=== PATIENT | female | born 1960 | race African-American/Black ===

== ENCOUNTER 2017-09-02 10:24 | Inpatient (IN) | payer BC, SELFPAY ==
[2017-09-02 10:51] LABS: #Basophils 0.1 thou/uL (0.0-0.2); #Eosinphils 0.6 thou/uL (0.0-0.7); #Lymphocytes 4.1 thou/uL (1.20-3.40); #Monocytes 1.1 thou/uL (0.11-0.59); #Neutrophils 10.1 thou/uL (1.40-6.50); %Basophils 0.7 % (0.0-1.0); %Lymphocytes 25.6 % (21.0-51.0); %Monocytes 6.8 % (0.0-10.0); %Neutrophils 62.9 % (42.0-75.0); Hemoglobin 14.3 g/dL (12.0-16.0); Mean Corpuscular HGB CONC 33.8 g/dL (32.0-36.0); Mean Corpuscular Volume 82.7 fl (81.0-99.0); Mean Platelet Volume 10.7 fL (7.4-10.4); Platelet Count 201 thou/uL (130-400); RBC Distribution Width 15.4 % (11.5-14.5)
[2017-09-02 11:13] LABS: ALT (SGPT) 13 U/L (8-55); AST (SGOT) 17 U/L (5-34); Albumin 4.4 g/dL (3.5-5.0); Alkaline Phosphatase 108 U/L (40-150); Anion Gap 13 mmol/L (10-20); BUN (Urea Nitrogen) 23 mg/dL (9.8-20.1); Bilirubin, Total 0.6 mg/dL (0.2-1.2); Calc. Creatinine Clearance 0 mL/min (70-130); Calcium 10.1 mg/dL (7.8-10.44); Carbon Dioxide 25 mmol/L (22-29); Chloride 107 mmol/L (98-107); Estimated GFR-MDRD 89; Globulin 3.6 g/dL (2.4-3.5); Glucose 100 mg/dL (70-105); Potassium 3.8 mmol/L (3.5-5.1); Sodium 141 mmol/L (136-145)
--- NOTE | 2017-09-02 11:26 | RAD ---
CHEST 1 VIEW: Date: 09/02/17 COMPARISON: 02/20/14. HISTORY: Cough. Left facial heaviness and drooping of the tongue. FINDINGS: Normal cardiac silhouette. Pulmonary vessels and hilum are normal. Costophrenic angles are clear. No consolidation or mass. No pneumothorax or osseous abnormalities. Atherosclerosis of the aorta is note d. IMPRESSION: 1. No acute cardiopulmonary process. 2. Atherosclerosis of the aorta. POS: [facility]
--- NOTE | 2017-09-02 12:01 | CT ---
NONCONTRAST CT HEAD: 09/02/2017 HISTORY: Left-sided numbness. The patient also reports left arm and leg pain since Jez. Tongue numbness. COMPARISON: None available. FINDINGS: There is no evidence of a hemorrhage, acute infarction, mass effect, or midline shift. The ventricul ar system is normal in size, shape, and position. The visualized paranasal sinuses and mastoid air c ells are clear. The calvarial structures demonstrate a lytic lesion within the right anterolateral p arietal bone, near the level of the superior aspect of the coronal suture. This is overall nonspecif ic. This may represent a large hemangioma. This lytic lesion measures 2.5 cm x 1.4 cm. The calvari al structures otherwise have a normal appearance. IMPRESSION: 1. Lytic lesion within the anterior and superior aspects of the right parietal bone, which may repre sent a large hemangioma, but further evaluation with a bone scan is recommended. 2. No acute intracranial abnormality is demonstrated. The above findings were discussed with Dr. Vela in the emergency department on 09/02/2017 at 1143 hours. CODE CR POS: [facility]
[2017-09-02 12:31] LABS: CKMB 2.3 ng/mL (0-6.6); Troponin I Less than 0.010 ng/mL (< 0.028)
[2017-09-02 13:34] VITALS: BMI 33.5
[2017-09-02] MEDS ORDERED: Ondansetron ODT 4 MG TAB PO PRN (14:20)
[2017-09-02] MEDS ORDERED: Zolpidem Tartrate 5 MG TAB PO PRN (14:20)
[2017-09-02] MEDS ORDERED: Amlodipine 5 MG TAB PO SCH (14:30)
[2017-09-02 14:38] LABS: Troponin I Less than 0.010 ng/mL (< 0.028)
--- NOTE | 2017-09-02 14:53 | HP ---
PRIMARY CARE PHYSICIAN: [facility]aresthesias. HISTORY OF PRESENT ILLNESS: Patient states the whole left side of her body is hurting her that her m outh is twisted a bit. She has numbness in her tongue and blurry vision in her right eye, this had b een present about 2 days. She denies any ataxia, or falls. She has some mild headache and some mild dizziness, but no vertigo. PAST MEDICAL HISTORY: Pertinent for hypertension, elevated cholesterol. CURRENT MEDICATIONS: Lisinopril 20/12.5 once a day, lovastatin 10 mg a day and aspirin 81 mg a day. ALLERGIES: She is allergic to no medicines. PAST SURGICAL HISTORY: She had a total hip replacement in 2015 on the right. FAMILY HISTORY: Mother has hypertension. Nobody has had strokes in the family. She has a sister wi th heart disease. No one with diabetes in the family. SOCIAL HISTORY: She is single, smokes 6 cigarettes a day currently, drinks 2 beers a month. CODE STATUS: FULL CODE status. REVIEW OF SYSTEMS: General: No fever, sweats or chills. Eyes: Blurry in the right eye. No double vision. ENT: No ear pain or drainage. No nasal bleeding. No trouble swallowing. Cardiac: No chest pain, orthopnea or paroxysmal nocturnal dyspnea. Respirations: She has some shor tness of breath at times with activity. She relates to smoking. No cough, wheezing or asthma. Gorge rointestinal: No nausea, vomiting, diarrhea or constipation. Genitourinary: No hematuria, dysuria or nocturia. Musculoskeletal: Occasional swelling in her legs. No particular muscle pains, joint p ains at this time. Neurologic: No history of strokes, seizures or focal weakness. Psychiatric: No anxiety, depression. Skin: No bruising, bleeding or rash. Heme/Lymph: No tender or swollen lymph nodes in axilla, inguinal or cervical area. PHYSICAL EXAMINATION: GENERAL: Patient is alert, oriented, cooperative lady. VITAL SIGNS: Blood pressure is elevated to 187/94, pulse 55, respirations 18, temperature 97.4. HEENT: Reveal pupils equal, reactive. Extraocular movements are intact. Sclerae white. Tympanic m embranes clear. Nose is clear. Oral mucous membranes are wet. Dental hygiene is good. Examination of her lips revealed puffy, swollen lips. NECK: No jugular venous distention, adenopathy or thyromegaly. CHEST: Clear to auscultation and percussion. HEART: Regular rate and rhythm. First and second heart sounds are clear. There are no appreciated murmurs or gallops. ABDOMEN: Soft, bowel sounds are normal. There is no hepatosplenomegaly, no masses, no rebound, no b ruits. EXTREMITIES: No cyanosis, clubbing or edema. PULSES: Carotid, radial, femoral, and dorsalis pedis pulses intact. SKIN: Warm and dry without bruises or rash. HEME/LYMPH: Reveals no tender or swollen lymph nodes in axilla, inguinal or cervical area. NEUROLOGICAL: Revealed protruding tongue deviated to the left, mild right seventh nerve palsy. Stre ngth was symmetric. There was no discoordination. Deep tendon reflexes were symmetric. X-RAY FINDINGS: CT scan of the brain reveals no acute intracranial abnormality; however, she does mitchell ve a lytic lesion in the right parietal bone, which may represent a hemangioma. A bone scan was glen mmended. Chest x-ray: No cardiomegaly, CHF or infiltrate, reviewed by me. LABORATORY DATA: Comp metabolic profile normal except for a BUN of 23. CBC normal except for a whit e count of 16.0. ASSESSMENT: 1. Possible cerebrovascular accident with abnormally deviated tongue and evidence of right central 7 th palsy. 2. Angioedema of the mouth. 3. Hypertension. 4. Dyslipidemia. 5. Left-sided body pain. PLAN: 1. MRI of the brain, no contrast. 2. Bone scan. 3. Stop lisinopril. 4. Start amlodipine. 5. Continue aspirin and lovastatin. Reevaluate when data available.
--- NOTE | 2017-09-02 16:41 | MRI ---
NONCONTRAST BRAIN MRI 09/02/17 HISTORY: Evaluate for stroke. Altered mental status. Two to three days of headache. COMPARISON: None. TECHNIQUE: Brain MRI is performed without intravenous gadolinium administration. Multisequential, multiplanar im aging is performed. FINDINGS: No hemorrhage on the axial gradient echo sequence. No parenchymal mass, mass effect or midline shift. Brain volume is age appropriate. Cortical tripp-whi te matter differentiation is preserved. Ventricles and sulci are patent and symmetric. No significant T2 or FLAIR white matter hyperintensities. Midline brain parenchymal structures are un remarkable. There is T1 hypointensity with associated T2/STIR hyperintensity involving the right fron rianna calvarium corresponding to recent CT findings. Possibility of atypical hemangioma is raised. Eval uation is incomplete. Central arterial flow voids are maintained. Absent restricted diffusion. Minima l mucosal thickening of the visualized sinuses. IMPRESSION: 1. Absence restricted diffusion. 2. No acute infarct. 3. There is intrinsic T1 hypointensity with associated STIR hyperintensity involving the right f rontal calvarium. There does appear to be some trabeculation, favoring an atypical hemangioma. Evalua tion is incomplete on this examination. Consider bone scan. POS: [facility]
--- NOTE | 2017-09-02 17:31 | PDOC.EVN ---
Event Note - Event Note Event Note: MRI brain- no cva , etc. sispect facial changes due to angioedame from MAXIMILIANO. lisinopril DCed, amlodipine started
[2017-09-02 17:43] LABS: Troponin I Less than 0.010 ng/mL (< 0.028)
[2017-09-02] MEDS: Nicotine 14 MG PATCH TOP SCH (18:14)
[2017-09-02] MEDS: cloNIDine 0.1 MG TAB PO PRN (20:18)
[2017-09-02] MEDS: Acetaminophen 325 MG TAB PO PRN (20:18)
[2017-09-02] MEDS: Cepastat Lozenges 1 LOZ PO PRN (20:19)
[2017-09-03 04:57] LABS: #Basophils 0.1 thou/uL (0.0-0.2); #Eosinphils 0.6 thou/uL (0.0-0.7); #Lymphocytes 3.1 thou/uL (1.20-3.40); #Monocytes 0.7 thou/uL (0.11-0.59); #Neutrophils 6.2 thou/uL (1.40-6.50); %Basophils 0.7 % (0.0-1.0); %Eosinophils 5.4 % (0.0-10.0); %Monocytes 6.2 % (0.0-10.0); %Neutrophils 58.8 % (42.0-75.0); Mean Corpuscular HGB CONC 32.3 g/dL (32.0-36.0); Mean Corpuscular Hemoglobin 27.2 pg (27.0-31.0); Mean Corpuscular Volume 84.2 fl (81.0-99.0); Mean Platelet Volume 11.3 fL (7.4-10.4); Platelet Count 195 thou/uL (130-400); RBC Distribution Width 15.4 % (11.5-14.5); Red Blood Cell (RBC) Count 4.77 mill/uL (4.20-5.40); White Blood Cell (WBC) Count 10.6 thou/uL (4.8-10.8)
[2017-09-03 05:24] LABS: Anion Gap 11 mmol/L (10-20); BUN (Urea Nitrogen) 21 mg/dL (9.8-20.1); Calc. Creatinine Clearance 97 mL/min (70-130); Calcium 9.2 mg/dL (7.8-10.44); Carbon Dioxide 25 mmol/L (22-29); Cardiac Risk 4.5 (Less than 4.5); Chloride 108 mmol/L (98-107); Cholesterol 195 mg/dl (< 200 Desired); Estimated GFR-MDRD Greater than 90; Glucose 103 mg/dL (70-105); HDL Cholesterol 43 mg/dL (>60 Neg Risk); LDL Cholesterol, Calculated 125 mg/dL; Potassium 3.7 mmol/L (3.5-5.1); Sodium 140 mmol/L (136-145); Triglycerides 137 mg/dL (Less than 150)
[2017-09-03] MEDS: Aspirin 325 mg Enteric Coated Tablet PO SCH (07:34)
[2017-09-03] MEDS: Amlodipine 5 MG TAB PO SCH (07:35)
[2017-09-03] MEDS: Enoxaparin Sodium 40 MG/0.4 ML SYRINGE SC SCH (07:35)
[2017-09-03] MEDS: Acetaminophen 325 MG TAB PO PRN ×3 (10:28→22:54)
[2017-09-03] MEDS: Cepastat Lozenges 1 LOZ PO PRN (10:28)
--- NOTE | 2017-09-03 12:17 | PDOC.PN ---
- Subjective Encounter Start Date: 09/03/17 Encounter Start Time: 12:15 Subjective: pain under R ear - Objective Resuscitation Status: Resuscitation Status FULL:Full Resuscitation MAR Reviewed: Yes Vital Signs & Weight: Vital Signs (12 hours) Temp Pulse Resp BP BP BP Pulse Ox 09/03/17 08:00 98.4 F 50 L 16 09/03/17 07:35 50 L 177/81 H 09/03/17 07:20 98.4 F 48 L 18 177/81 H 96 09/03/17 03:03 97.8 F 50 L 20 167/72 H 94 L Weight Weight 172 lb I&O: 09/02/17 09/03/17 09/04/17 06:59 06:59 06:59 Intake Total 900 240 Output Total 1300 Balance -400 240 Result Diagrams: 09/03/17 04:44 09/03/17 04:44 Phys Exam - Physical Examination exquisily tender, swollen R parotid Neck: no JVD Respiratory: clear to auscultation bilateral Cardiovascular: RRR, no significant murmur Gastrointestinal: soft, non-tender, positive bowel sounds Musculoskeletal: no edema Dx/Plan (1) Angio-edema Code(s): T78.3XXA - ANGIONEUROTIC EDEMA, INITIAL ENCOUNTER Status: Acute Qualifiers: Encounter type: sequela Qualified Code(s): T78.3XXS - Angioneurotic edema, sequela (2) HTN (hypertension) Code(s): I10 - ESSENTIAL (PRIMARY) HYPERTENSION Status: Acute (3) Dyslipidemia Code(s): E78.5 - HYPERLIPIDEMIA, UNSPECIFIED Status: Acute (4) Suppurative parotitis Code(s): K11.20 - SIALOADENITIS, UNSPECIFIED Status: Acute - Plan blood C&S, start rocephin for parotitis -: bone scan pending -: cont off MAXIMILIANO * .
--- NOTE | 2017-09-03 13:22 | NM ---
WHOLE BODY BONE SCAN: HISTORY: Lytic lesion in the right calvarium. COMPARISON: MRI brain and CT brain from 09/02/2017. TECHNIQUE: A whole body bone scan was performed after the administration of 30 millicuries of technetium 99m MDP . FINDINGS: There is an area of photopenia in the right calvarium, which correlates with the region where the abn ormality is seen on CT and MRI. No significant increased uptake of the radiopharmaceutical is seen a round this photopenic region. There is abnormal uptake in both knees and ankles/feet secondary to degenerative change. Soft tissue activity is unremarkable. Uptake in the mandible is likely secondary to periodontal disease. IMPRESSION: There is photopenia at the area of abnormality in the right calvarium. This photopenic region is non specific. POS: [facility]
[2017-09-03] MEDS: cefTRIAXone\\ROCEPHIN 2 GM in Sodium Chloride 0.9% 100 ML IVPB SCH (14:48)
[2017-09-03] MEDS: Nicotine 14 MG PATCH TOP SCH (17:38)
[2017-09-03] MEDS ORDERED: Simvastatin 5 MG TAB PO SCH (21:00)
[2017-09-03] MEDS: cloNIDine 0.1 MG TAB PO PRN (22:53)
[2017-09-04] MEDS: Aspirin 325 mg Enteric Coated Tablet PO SCH (08:26)
[2017-09-04] MEDS: Enoxaparin Sodium 40 MG/0.4 ML SYRINGE SC SCH (08:26)
[2017-09-04] MEDS: Amlodipine 5 MG TAB PO SCH (09:46)
[2017-09-04 12:07] VITALS: BP 148/63; TEMP 97.8
--- NOTE | 2017-09-04 12:29 | DIS ---
DATE OF ADMISSION: 09/02/2017 DATE OF DISCHARGE: 09/04/2017 PRIMARY CARE PROVIDER: [facility]. DISCHARGE DISPOSITION: Home. FINAL DIAGNOSES: Acute sialadenitis, angioedema secondary to MAXIMILIANO, hypertension, dyslipidemia. DISCHARGE MEDICATIONS: Omnicef 600 mg a day, amlodipine 5 mg a day, aspirin 325 mg a day, lovastatin 10 mg a day. MEDICATIONS DISCONTINUED: MAXIMILIANO inhibitor. ALLERGIES: None. CODE STATUS: FULL. PENDING AT THE TIME OF DISCHARGE: Blood cultures are negative to date. They will be followed. HOSPITAL COURSE: Patient was admitted through the emergency room to the [facility] a diagnosis of paresthesias. She had pain on her left side of the body, numbness of the tongue an d swelling in the face. On physical exam, it was obvious she had angioedema of the tongue and lips. Her MAXIMILIANO inhibitor was stopped. This is resolved. She never had respiratory distress. She did have a very tender, swollen right parotid gland for which she was started on ceftriaxone and it is marked ly diminished today. Her pertinent laboratory on admission, she had a white count of 16.0, which ashleigh pped down to 10.6, hemoglobin 14.3 to 13.0. Her chemistries, comp metabolic profile was normal excep t for BUN of 23. She had a brain MRI, which was unrevealing for acute process, as was the brain CT. She did have an area of her calvarium, which was followed with a bone scan. There was no evidence o f a malignant process, most likely a hemangioma. She is being discharged on the above medications, t o take the Norvasc in place of the MAXIMILIANO inhibitor for blood pressure and to take the cefdinir/Omnicef for 10 days. No consultations were obtained. No procedures were done. She has been asked to follow up with her primary care provider in 7 days. Today, she is feeling well. Her pulse is listed as 46 in the [employer]. I have taken her pulse several times over the past 30 minutes myself and she is al ways between 60 and 70. Blood pressure this morning was 122/65, heart and lungs are clear. She is a lert and appropriate and ready to go home.
[2017-09-04] MEDS: cefTRIAXone\\ROCEPHIN 2 GM in Sodium Chloride 0.9% 100 ML IVPB SCH (14:10)
== END 2017-09-04 14:45 | disposition home or self-care (01) | DRG 916 ==
LOC: ERS 10:24 → OBSVTOIN 12:10 → 2SW 12:10 → T4-A 09-03 13:43
PROVIDERS: ADMIT Internal Medicine; ATTEND Internal Medicine
DX: T78.3XXA Angioneurotic edema, initial encounter (principal); K11.21 Acute sialoadenitis; T46.4X5A Adverse effect of angiotensin-converting-enzyme inhibitors, initial encounter; I10 Essential (primary) hypertension; E78.5 Hyperlipidemia, unspecified; F17.210 Nicotine dependence, cigarettes, uncomplicated
CPT/HCPCS: 36415; 70450; 70551; 71045; 78306; 80048; 80053; 80061; 82553; 83880; 84484; 85025; 87040; A9503; J0696; J1650; J7050

== ENCOUNTER 2018-03-25 13:50 | Emergency (ER) | payer SELFPAY ==
[2018-03-25] MEDS ORDERED: Ketorolac Tromethamine 60 MG/2 ML VIAL ONE (14:58)
--- NOTE | 2018-03-25 15:58 | ULT ---
VENOUS DOPPLER ULTRASOUND OF THE LEFT LOWER EXTREMITY: Date: 03/25/18 HISTORY: Left leg pain. TECHNIQUE: Parker scale ultrasound with color flow and spectral Doppler imaging of the deep venous system of the l eft lower extremity was performed. FINDINGS: There is good flow, compression, and augmentation noted in the left common femoral, femoral, deep fem oral, popliteal, posterior tibial, and greater saphenous veins. IMPRESSION: No evidence of deep venous thrombosis in the left lower extremity. POS: [facility]
== END 2018-03-25 15:56 | disposition home or self-care (01) ==
LOC: ERS 13:50
DX: M54.42 Lumbago with sciatica, left side (principal); Z71.6 Tobacco abuse counseling; F17.210 Nicotine dependence, cigarettes, uncomplicated; I10 Essential (primary) hypertension; E78.5 Hyperlipidemia, unspecified
CPT/HCPCS: 96374; 99406; J1885

== ENCOUNTER 2019-08-10 19:45 | Emergency (ER) | payer BC, SELFPAY ==
[2019-08-10] MEDS ORDERED: Nitroglycerin 2% Ointment 1 INCH/1 GM Packet ONE (19:59)
[2019-08-10 20:10] LABS: #Basophils 0.2 thou/uL (0.0-0.2); #Eosinphils 0.7 thou/uL (0.0-0.7); #Lymphocytes 4.2 thou/uL (1.20-3.40); #Monocytes 0.8 thou/uL (0.11-0.59); #Neutrophils 8.2 thou/uL (1.40-6.50); %Basophils 1.1 % (0.0-1.0); %Eosinophils 4.7 % (0.0-10.0); %Lymphocytes 30.2 % (21.0-51.0); %Monocytes 5.9 % (0.0-10.0); %Neutrophils 58.1 % (42.0-75.0); Hemoglobin 13.5 g/dL (12.0-16.0); Mean Corpuscular HGB CONC 32.6 g/dL (32.0-36.0); Mean Corpuscular Hemoglobin 27.4 pg (27.0-31.0); Mean Corpuscular Volume 84.1 fL (78.0-98.0); Mean Platelet Volume 9.5 fL (7.4-10.4); Platelet Count 198 thou/uL (130-400); RBC Distribution Width 14.9 % (11.5-14.5); Red Blood Cell (RBC) Count 4.93 mill/uL (4.20-5.40)
[2019-08-10 20:35] LABS: ALT (SGPT) 12 U/L (8-55); AST (SGOT) 12 U/L (5-34); Albumin 4.3 g/dL (3.5-5.0); Alkaline Phosphatase 89 U/L (40-110); Anion Gap 14 mmol/L (10-20); BUN (Urea Nitrogen) 15 mg/dL (9.8-20.1); Bilirubin, Total 0.3 mg/dL (0.2-1.2); Calc. Creatinine Clearance 0 mL/min (70-130); Calcium 9.6 mg/dL (7.8-10.44); Carbon Dioxide 25 mmol/L (22-29); Chloride 106 mmol/L (98-107); Estimated GFR-MDRD 81; Globulin 3.2 g/dL (2.4-3.5); Glucose 103 mg/dL (70-105); Potassium 3.8 mmol/L (3.5-5.1); Protein, Total 7.5 g/dL (6.0-8.3); Sodium 141 mmol/L (136-145)
--- NOTE | 2019-08-10 21:14 | RAD ---
PORTABLE CHEST: 08/10/19 PROVIDED CLINICAL HISTORY: Chest pain. FINDINGS: Comparison 09/02/17. Cardiac silhouette remains enlarged. Vascular calcifications noted involving the aortic arch. No foca l consolidation, pleural fluid or pneumothorax apparent. IMPRESSION: Stable radiographic appearance of the chest. POS: [facility]
--- NOTE | 2019-08-10 21:24 | ULT ---
Sonogram right breast HISTORY: Pain and swelling. Drainage. FINDINGS: Sonographic evaluation of the superior aspect of the right breast in region of concern show s a small area of skin indentation. No underlying fluid collections or focal mass.
[2019-08-10 23:05] LABS: Troponin I Less than 0.010 ng/mL (< 0.028)
== END 2019-08-10 23:24 | disposition home or self-care (01) ==
LOC: ERS 19:45
DX: R07.9 Chest pain, unspecified (principal); E78.5 Hyperlipidemia, unspecified; I10 Essential (primary) hypertension; F17.210 Nicotine dependence, cigarettes, uncomplicated
CPT/HCPCS: 36415; 71045; 80053; 84484; 85025; 93005

== ENCOUNTER 2022-07-14 12:56 | Outpatient (CLI) | payer OTHER | END 2022-07-14 12:57 | disposition home or self-care (01) | LOC: BICMAMMO 12:56 | PROVIDERS: ATTEND Nurse Practitioner Family | DX: Z12.31 Encounter for screening mammogram for malignant neoplasm of breast (principal) | CPT/HCPCS: 77063; 77067 ==

== ENCOUNTER 2023-10-27 13:51 | Outpatient (CLI) | payer MEDICARE | END 2023-10-27 13:52 | disposition home or self-care (01) | LOC: BICMAMMO 13:51 | PROVIDERS: ATTEND Nurse Practitioner Family | DX: Z12.31 Encounter for screening mammogram for malignant neoplasm of breast (principal); Z13.820 Encounter for screening for osteoporosis; Z78.0 Asymptomatic menopausal state; Z80.3 Family history of malignant neoplasm of breast; Z91.89 Other specified personal risk factors, not elsewhere classified | CPT/HCPCS: 77063; 77067; 77080 ==

== ENCOUNTER 2024-04-23 13:59 | Inpatient (IN) | payer MEDICARE ==
[2024-04-23 14:37] LABS: #Basophils 0.07 10x3/uL (0.0-0.2); %Basophils 0.5 % (0.0-1.0); %Eosinophils 3.3 % (0.0-10.0); %Lymphocytes 24.2 % (21.0-51.0); %Monocytes 6.6 % (0.0-10.0); %Neutrophils 65.1 % (42.0-75.0); Hematocrit 41.3 % (36.0-47.0); Hemoglobin 13.2 g/dL (12.0-16.0); Mean Corpuscular Hemoglobin 26.2 pg (27.0-31.0); Mean Corpuscular Volume 82.1 fL (78.0-98.0); Mean Platelet Volume 10.4 fL (7.4-10.4); Platelet Count 213 10x3/uL (130-400); RBC Distribution Width 16.1 % (11.5-14.5); Red Blood Cell (RBC) Count 5.03 mill/uL (4.20-5.40)
[2024-04-23 14:51] LABS: ALT (SGPT) 21 U/L (8-55); AST (SGOT) 18 U/L (5-34); Albumin 3.9 g/dL (3.4-4.8); Alkaline Phosphatase 99 U/L (40-110); Anion Gap 16 mmol/L (10-20); BUN (Urea Nitrogen) 18 mg/dL (9.8-20.1); Bilirubin, Total 0.5 mg/dL (0.2-1.2); Calc. Creatinine Clearance 0 mL/min (70-130); Calcium 9.6 mg/dL (7.8-10.44); Carbon Dioxide 22 mmol/L (23-31); Chloride 107 mmol/L (98-107); Estimated GFR 93; Glucose 115 mg/dL (80-115); Potassium 3.7 mmol/L (3.5-5.1); Protein, Total 7.9 g/dL (5.8-8.1); Sodium 141 mmol/L (136-145)
[2024-04-23 15:00] LABS: Troponin I 0.024 ng/mL (< 0.028)
[2024-04-23 16:52] LABS: Bacteria/HPF None Seen HPF (None Seen); Bilirubin Negative (Negative); Blood, Urine Negative (Negative); CAUTI Indications for Culture Dysuria,urgency,freq; Clarity Clear (Clear); Glucose, Urine (Dipstick) Normal (Negative); Ketone, Urine Negative (Negative); Leukocyte Negative Leu/uL (Negative); Nitrite Negative (Negative); Protein, Urine (Dipstick) Negative (Neg-Trace); RBC/HPF 0-3 HPF (0-3); Specific Gravity, Urine 1.013 (1.002-1.036); Urobilinogen Normal mg/dL (Less than 2); WBC/HPF 0-3 HPF (0-3); pH, Urine 6.5 (5.0-9.0)
[2024-04-23 16:54] LABS: Urine Culture Reflex No No
[2024-04-23] MEDS ORDERED: Ondansetron PF 4 MG/2 ML Vial IVP PRN (17:42)
[2024-04-23] MEDS ORDERED: Ondansetron ODT 4 MG TAB PO PRN (17:42)
[2024-04-23] MEDS ORDERED: Acetaminophen 325 MG TAB PO PRN (17:42)
[2024-04-23 18:08] LABS: Troponin I 0.032 ng/mL (< 0.028)
[2024-04-23] MEDS ORDERED: Ipratropium/Albuterol 3 ML NEB NEB PRN (18:26)
[2024-04-23 19:52] VITALS: BMI 36.2
[2024-04-23 20:43] LABS: Troponin I 0.025 ng/mL (< 0.028)
[2024-04-23] MEDS ORDERED: Cyclobenzaprine 10 MG TAB PO PRN (20:47)
[2024-04-23] MEDS: Hydrochlorothiazide 25 MG TAB PO SCH (21:06)
[2024-04-23] MEDS: Amlodipine 10 MG TAB PO SCH (21:06)
[2024-04-23] MEDS: Gabapentin 300 MG CAP PO SCH (21:07)
[2024-04-23] MEDS: Nicotine 21 MG PATCH TD SCH (21:07)
[2024-04-24 04:32] LABS: #Basophils 0.05 10x3/uL (0.0-0.2); %Basophils 0.4 % (0.0-1.0); %Lymphocytes 25.2 % (21.0-51.0); %Monocytes 6.7 % (0.0-10.0); %Neutrophils 64.5 % (42.0-75.0); Hematocrit 41.7 % (36.0-47.0); Hemoglobin 13.1 g/dL (12.0-16.0); Mean Corpuscular HGB CONC 31.4 g/dL (32.0-36.0); Mean Corpuscular Volume 82.9 fL (78.0-98.0); Mean Platelet Volume 11.6 fL (7.4-10.4); Platelet Count 223 10x3/uL (130-400); RBC Distribution Width 16.4 % (11.5-14.5); Red Blood Cell (RBC) Count 5.03 mill/uL (4.20-5.40)
[2024-04-24 05:06] LABS: Anion Gap 12 mmol/L (10-20); BUN (Urea Nitrogen) 17 mg/dL (9.8-20.1); Calc. Creatinine Clearance 105 mL/min (70-130); Calcium 9.6 mg/dL (7.8-10.44); Carbon Dioxide 25 mmol/L (23-31); Chloride 108 mmol/L (98-107); Estimated GFR 94; Glucose 108 mg/dL (80-115); Potassium 3.7 mmol/L (3.5-5.1); Sodium 141 mmol/L (136-145)
[2024-04-24] MEDS ORDERED: Hydrochlorothiazide 25 MG TAB PO SCH (09:00)
[2024-04-24] MEDS: Aspirin 81 mg Enteric Coated Tablet PO SCH (09:11)
[2024-04-24] MEDS: Amlodipine 10 MG TAB PO SCH (09:15)
[2024-04-24] MEDS: Atorvastatin Calcium 20 MG TAB PO SCH (09:15)
[2024-04-24] MEDS ORDERED: Iopamidol 370 76% 100 ML VIAL ONE (09:28)
[2024-04-24] MEDS: NS 0.9% w/ 20 MEQ KCL 1,000 ML/1,000 ML BAG IV SCH (11:23)
[2024-04-25 07:19] LABS: #Basophils 0.05 10x3/uL (0.0-0.2); %Basophils 0.4 % (0.0-1.0); %Eosinophils 3.7 % (0.0-10.0); %Lymphocytes 25.7 % (21.0-51.0); %Monocytes 5.9 % (0.0-10.0); Hematocrit 42.1 % (36.0-47.0); Hemoglobin 13.3 g/dL (12.0-16.0); Mean Corpuscular HGB CONC 31.6 g/dL (32.0-36.0); Mean Corpuscular Hemoglobin 25.8 pg (27.0-31.0); Mean Corpuscular Volume 81.6 fL (78.0-98.0); Mean Platelet Volume 10.9 fL (7.4-10.4); Platelet Count 210 10x3/uL (130-400); RBC Distribution Width 16.3 % (11.5-14.5); Red Blood Cell (RBC) Count 5.16 mill/uL (4.20-5.40)
[2024-04-25 07:48] LABS: Anion Gap 11 mmol/L (10-20); BUN (Urea Nitrogen) 14 mg/dL (9.8-20.1); Calc. Creatinine Clearance 94 mL/min (70-130); Calcium 9.7 mg/dL (7.8-10.44); Carbon Dioxide 28 mmol/L (23-31); Cardiac Risk 3.5 (Less than 4.5); Chloride 108 mmol/L (98-107); Cholesterol 140 mg/dl (< 200 Desired); Estimated GFR 82; Glucose 103 mg/dL (80-115); HDL Cholesterol 40 mg/dL (>60 Neg Risk); LDL Cholesterol, Calculated 75 mg/dL; Potassium 4.1 mmol/L (3.5-5.1); Sodium 143 mmol/L (136-145); Triglycerides 125 mg/dL (Less than 150)
[2024-04-25] MEDS: Atorvastatin Calcium 40 MG TAB PO SCH (09:33)
[2024-04-25] MEDS: Meclizine HCl 25 MG TAB PO PRN (09:34)
[2024-04-25 15:33] VITALS: BP 112/59; TEMP 98
== END 2024-04-25 16:36 | disposition home or self-care (01) | DRG 641 ==
LOC: ERS 13:59 → OBS 17:31 → OBSVTOIN 04-25 10:55
PROVIDERS: ADMIT Internal Medicine; ATTEND Family Medicine
DX: E86.9 Volume depletion, unspecified (principal); I10 Essential (primary) hypertension; Z96.643 Presence of artificial hip joint, bilateral; F17.210 Nicotine dependence, cigarettes, uncomplicated; G62.9 Polyneuropathy, unspecified; E78.00 Pure hypercholesterolemia, unspecified; M19.90 Unspecified osteoarthritis, unspecified site
CPT/HCPCS: 36415; 70450; 70496; 70498; 71046; 80048; 80053; 80061; 81001; 83735; 84443; 84484; 85025; 93005; 93306; 93880; 94760; J3480; Q9967

== ENCOUNTER 2024-05-04 08:42 | Outpatient (CLI) | payer MEDICARE | END 2024-05-04 08:43 | disposition home or self-care (01) | LOC: BICRAD 08:42 | PROVIDERS: ATTEND Nurse Practitioner Family | DX: M54.31 Sciatica, right side (principal); M54.32 Sciatica, left side; M47.816 Spondylosis without myelopathy or radiculopathy, lumbar region | CPT/HCPCS: 72100 ==

== ENCOUNTER 2025-01-04 10:04 | Outpatient (CLI) | payer MEDICARE | END 2025-01-04 10:05 | disposition home or self-care (01) | LOC: BICMAMMO 10:04 | PROVIDERS: ATTEND Nurse Practitioner Family | DX: Z12.31 Encounter for screening mammogram for malignant neoplasm of breast (principal); Z91.89 Other specified personal risk factors, not elsewhere classified | CPT/HCPCS: 77063; 77067 ==